=== PATIENT | female | born 1950 | race Two or more races ===

== ENCOUNTER 2024-02-23 10:11 | Outpatient (AMB) | payer MEDICARE, SELFPAY ==
[2024-02-23 10:33] VITALS: BP 128/86; PULSE 89; RESP 16; TEMP 36.3; O2SAT 97; BMI 32.3
--- NOTE | 2024-02-23 10:33 | ORTHONT_ITS ---
Vital signs 02/23/24 10:33 Height 1.57 m Height Method Stated Weight 79.832 kg Weight Measurement Method Standing Scale BMI 32.3 BP 128/86 H Blood Pressure Source Automatic Cuff Blood Pressure Location Right Upper Arm Position Sitting Respiration 16 Pulse 89 Pulse Source Monitor Temp 97.4 F Temp Source Temporal Artery Scan Pulse Oximetry (%) 97 Oxygen Delivery Method Room Air Med/Allergies Allergies & Medications Allergies nabumetone Allergy (Intermediate, Verified 02/23/24 10:34) Hives Medication Reconciliation atorvastatin 40 mg tablet 40 mg PO QPM ##30 08/13/16 [History Confirmed 02/23/24] losartan 50 mg tablet 50 mg PO QDAY ##90 08/13/16 [History Confirmed 02/23/24] chlorthalidone 25 mg tablet 25 mg PO QDAY 09/04/23 [History Confirmed 02/23/24] gabapentin 300 mg capsule 300 mg PO TID 09/04/23 [History Confirmed 02/23/24] aspirin 81 mg tablet,delayed release 81 mg PO BID #60 tabs 09/07/23 [Rx Confirmed 02/23/24] Subjective Visit Visit for: follow up visit and knee Immunization / Flu Flu Vaccine in the Last 12 Months: Yes Flu Vaccine Exclusion Criteria: Already Received History of Present Illness Chief complaint: F/U KNEE XRAYS Patient had surgery 5 months ago and had recurrent cellulitis. We performed an aspiration which demonstrates a very low cell count and negative aspiration. He reports that there is occasional redness that come and go on her ankle. It does not go to the knee and she has painless range of motion. Her aspiration results infection workup has been negative as far as a periprosthetic joint infection which is promising. 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 Exam Exam Patient is in no acute distress and is cooperative with the examination today. Patient has a normal mood and affect. Breathing is nonlabored. In no respiratory distress. Bilateral extremities were evaluated and demonstrates sensation intact to light touch. Palpable pedal pulses are present. No significant edema is present. Incision is clean dry intact. There is minimal swelling. ROM is 0-100 No erythema is present She has a cemented total knee replacement in good alignment and position Assessment and Plan Problem List (1) Cellulitis: Status: Acute Plan: Patient has cellulitis of her left lower extremity that has resolved. We will continue to watch her. She has been doing well and has no new knee pain. Advanced Care Planning Discussion Advance care planning discussed with:: patient Office Procedures GNS Level of Care Nursing/Assessment Patient Status: Established Patient Nursing Assessment/Reassesment: Medication Reconciliation, Update PMH in EMR and Vital Signs Coordination of Care: Complex Care and Chronic Disease 1-5, Education Complex Pt/Fam, Consent,records obtained, informed consent, Results/Orders obtained and Staff clarify orders Special Needs: Language special needs Established Patient Charge Established Patient Point Assignment: 95 Established Patient Point Charge: EP Level 3 (80-115) Past Medical History Past Medical History Have you ever been diagnosed with any of the following: Neurological Problems Seizures: No Cardiology Problems Hypercholesterolemia: Yes Congestive Heart Failure: No Hypertension: Yes Varicose Veins: Yes Respiratory Problems Chronic Obstructive Pulmonary Disease (COPD): No Tuberculosis: Yes Cough: No Wheezing: No Chest Deformities: No Smoking: No Smoking Cessation Counseling: No Smoking Exposure: No Stomache/Intestinal Problems Hepatitis: No Obesity: Yes Genital/Urinary Problems Renal Disease: No Reproductive Problems Previous Pregnancies: Yes Musculoskeletal Problems Arthritis: Yes Osteoporosis: Yes Head,Eye,Nose,Throat Problems Cataracts: Yes Endocrine Problems Diabetes Mellitus Type 1: No Diabetes Mellitus Type 2: No Other Problems Hospitalization: Yes Shingles: Yes Blood Transfusions: No Anesthesia Reactions: No Chicken Pox: Yes Measles: Yes Cancer: No Surgical History Total Knee Replacement: Yes
== END 2024-02-23 10:51 | disposition home or self-care (01) ==
PROVIDERS: PCP Physician Assistant; Referring Provider Physician Assistant; Supervising Provider Orthopaedic Surgery Adult Reconstructive Orthopaedic Surgery; Visit Provider Orthopaedic Surgery Adult Reconstructive Orthopaedic Surgery
DX: L03.116 Cellulitis of left lower limb (principal); I10 Essential (primary) hypertension; E78.00 Pure hypercholesterolemia, unspecified
CPT/HCPCS: 99213; G0463

== ENCOUNTER → 2024-11-01 | Outpatient (CLI) | payer MEDICARE, MEDICAID, SELFPAY ==
--- NOTE | 2024-11-01 | XR_ITS ---
Examination: Lumbar spine, 5 views Technique: Lumbar spine AP, lateral, coned lateral lower lumbar spine, bilateral obliques 5 views Exam date and time: November 01, 2024 1301 hours Comparison 01/01/2023 INDICATIONS: Lower back pain 5 years. FINDINGS: Severe osteopenia Lumbar levoscoliosis 18 degrees Diffuse significant facet arthropathy Again noted grade 1 anterolisthesis L4 on L5 No lumbar fracture Moderate disc narrowing L4-L5 progressed compared to the 2022 exam Heavy abdominal aortic calcification IMPRESSION: Severe osteopenia Lumbar levoscoliosis 18 degrees Worsening degenerative disc disease L4-L5, currently moderate
== END | disposition home or self-care (01) ==
PROVIDERS: PCP Physician Assistant; Referring Provider Physician Assistant; Visit Provider Physician Assistant
DX: M85.88 Other specified disorders of bone density and structure, other site (principal); M41.86 Other forms of scoliosis, lumbar region; M51.360 Other intervertebral disc degeneration, lumbar region with discogenic back pain only
CPT/HCPCS: 72110